=== PATIENT | female | born 1995 | race African-American/Black ===

== ENCOUNTER 2019-08-07 10:01 | Outpatient (CLI) | payer MEDICAID | END 2019-08-07 11:30 | disposition home or self-care (01) | LOC: LC 10:01 | PROVIDERS: ATTEND Obstetrics & Gynecology | PROC: 4A1HXCZ Monitoring of Products of Conception, Cardiac Rate, External Approach (ICD-10-PCS; principal; 2019-08-07) | DX: O24.419 Gestational diabetes mellitus in pregnancy, unspecified control (principal); Z3A.35 35 weeks gestation of pregnancy | CPT/HCPCS: 59025 ==

== ENCOUNTER 2019-09-07 08:10 | Inpatient (IN) | payer MEDICAID ==
[2019-09-07] MEDS ORDERED: OXYTOCIN 10 UNIT/ML VIAL ONE (08:28)
[2019-09-07] MEDS ORDERED: MISOPROSTOL 0.2 MG TABLET ONE (08:28)
[2019-09-07] MEDS ORDERED: OXYTOCIN/NORMAL SALINE 20 UNIT/1,000 ML RTUINJ ONE (08:28)
[2019-09-07] MEDS ORDERED: LIDOCAINE 1% INJ-PF (10 MG/ML) 30 ML SDV ONE (08:28)
--- NOTE | 2019-09-07 08:44 | Admission Physical ---
Datetime Report Generated by CPN: 09/07/2019 08:44 CURRENT ADMISSION Hx Assessment: The History has been Reviewed and is Current Chief Complaint: Uterine Contractions Indication for Induction: Not Applicable Admit Impression : Term, Intrauterine Admit Plan: Admit to Unit; Initiate Labor Protocol ALLERGIES Medication Allergies: No Medication Allergies: No Known Allergies (09/07/2019) Latex: No Latex Allergies OBSTETRICAL HISTORY EDC: 09/06/2019 00:00 : 2 Para: 0 : 1 Livin Gestational Diabetes: Yes Rh Sensitization: No Incompetent Cervix: No PEDRO: No Infertility: No ART Treatment: No Uterine Anomaly: No IUGR: No Hx Previous C/S: No Macrosomia: No Hx Loss/Stillborn: No PIH: No Hx : No Placenta Previa/Abruption: No Depression/PP Depression: No PTL/PROM: No Post Hemorrhage: No Current Procedures: Ultrasound; NST Obstetrical History Comments: G1-Delivered at 19.2 weeks, within 30 minutes of G2-Current SEE RECORDS Alcohol: No Marijuana : No Cocaine: No Other Illicit Drugs: No Cigarettes: Never Smoker. 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 Surgery: No Heart Disease: No Hosp/Surgery: No Autoimmune Disorder: No Anesthetic Complications: No Kidney Disease: No Abnormal Pap Smear: No Neuro/Epilepsy: No Psychiatric Disorders: No Other Medical Diseases: No Hepatitis/Liver Disease: No Significant Family History: No Varicosities/Phlebitis: No Trauma/Violence : No Thyroid Dysfunction: No Medical History Comments: GDM-diet controlled INFECTIOUS HISTORY Gonorrhea: No Genital Herpes: No Chlamydia: No Tuberculosis: No Syphilis: No Hepatitis: No HIV/AIDS Exposure: No Rash or Viral Illness: No HPV: No PHYSICAL EXAM General: Normal HEENT: Normal Neurologic: Normal Thyroid: Normal Heart: Normal Lungs: Normal Breast: Normal Back: Normal Abdomen: Normal Genitourinary Exam: Normal Extremities: Normal DTRs: Normal Pelvic Type: Adequate Physical Exam Comments: G2 P 1 MFM for GDM loss at 20 weeks Marginal cord insertion IUGR, IOL @ 39 weeks, pt declined Choroid plexus cyst GBS neg Vital Signs: Reviewed MEMBRANES Membranes: Intact FETUS A EGA: 40.1 Monitoring: External US Presentation: Vertex Admit Comment: Admitted to LD in active labor @ 40.1, complete, bulging BOW UC's q 2 min, variable decelerations with uc's, Cat 1 strip will arom and anticipate PLANS FOR LABOR AND DELIVERY Labor and Delivery: None Pain Management: None Feeding Preference: Breast Circumcision: N/A INFORMED CONSENT Assignment: Leti Gates MD Signature: with User ID: [email or web address] : with User ID: [email or web address]
[2019-09-07 09:01] LABS: ABSOLUTE BASOPHILS # (AUTO) 0.1 10^3/uL (0.0-0.2); ABSOLUTE LYMPHOCYTES (AUTO) 1.6 10^3/uL (0.5-4.7); ABSOLUTE MONOCYTES (AUTO) 0.4 10^3/uL (0.1-1.4); BASOPHILS % (AUTO) 0.9 % (0-2); EOSINOPHILS % (AUTO) 0.4 % (0-6); HEMATOCRIT 39.6 % (36.0-47.0); HEMOGLOBIN 13.4 g/dL (12.0-15.5); LYMPHOCYTES % (AUTO) 26.7 % (13-45); MEAN CORPUSCULAR HEMOGLOBIN 32.1 pg (27.0-33.4); MEAN CORPUSCULAR HGB CONC 33.8 g/dL (32.0-36.0); MEAN CORPUSCULAR VOLUME 95 fl (80-97); MONOCYTES % (AUTO) 7.1 % (3-13); PLATELET COUNT 145 10^3/uL (150-450); RED BLOOD COUNT 4.17 10^6/uL (3.72-5.28); RED CELL DISTRIBUTION WIDTH 13.4 % (11.5-14.0); SEGMENTED NEUTROPHILS % (AUTO) 64.9 % (42-78); TOTAL CELLS COUNTED % (AUTO) 100 %; WHITE BLOOD COUNT 6.2 10^3/uL (4.0-10.5)
[2019-09-07 09:18] LABS: APPEARANCE,URINE CLEAR; BILIRUBIN,URINE NEGATIVE (NEGATIVE); COLOR,URINE YELLOW; GLUCOSE, URINE NEGATIVE (NEGATIVE); KETONES,URINE NEGATIVE (NEGATIVE); LEUKOCYTE ESTERASE,URINE NEGATIVE (NEGATIVE); NITRITE,URINE NEGATIVE (NEGATIVE); PROTEIN,URINE NEGATIVE (NEGATIVE); UROBILINOGEN,URINE NEGATIVE mg/dL (<2.0)
[2019-09-07] MEDS ORDERED: OXYTOCIN/NORMAL SALINE 20 UNIT/1,000 ML RTUINJ IV PRN (09:26)
[2019-09-07] MEDS ORDERED: DIPH/PERTUSS(ACELL)/TETANUS VAC/PF 0.5 ML SYR (>=10YO) IM PRN (09:26)
[2019-09-07] MEDS ORDERED: GLYCERIN/WITCH HAZEL LEAF 1 EACH MED..WIPE TP PRN (09:26)
[2019-09-07] MEDS ORDERED: ACETAMINOPHEN WITH CODEINE #3 TABLET PO PRN ×2 (09:26)
[2019-09-07] MEDS ORDERED: DIPHENHYDRAMINE HCL 25 MG CAPSULE PO PRN (09:26)
[2019-09-07] MEDS ORDERED: BENZOCAINE/MENTHOL AEROSOL SPRAY 56 ML TOP PRN (09:26)
[2019-09-07] MEDS ORDERED: MEASLES,MUMPS&RUBELLA VACC/PF 0.5 ML VIAL SUBCUT PRN (09:26)
[2019-09-07] MEDS ORDERED: DIBUCAINE 1% OINTMENT 56 GM TP PRN (09:26)
[2019-09-07] MEDS ORDERED: PROMETHAZINE HCL INJ 25 MG/1 ML VIAL IV PRN (09:26)
[2019-09-07] MEDS ORDERED: NA PHOS,M-B/NA PHOS,DI-BA (ADULT) 133 ML ENEMA PR PRN (09:26)
[2019-09-07] MEDS ORDERED: PSEUDOEPHEDRINE HCL 30 MG TABLET PO PRN (09:26)
[2019-09-07] MEDS ORDERED: PROMETHAZINE HCL 25 MG TABLET PO PRN (09:26)
[2019-09-07] MEDS ORDERED: ACETAMINOPHEN 650 MG SUPP.RECT PR PRN (09:26)
[2019-09-07] MEDS ORDERED: MAGNESIUM HYDROXIDE SUSP 30 ML UDCUP PO PRN (09:26)
[2019-09-07] MEDS ORDERED: PROMETHAZINE HCL 25 MG SUPP.RECT PR PRN (09:26)
[2019-09-07 09:35] LABS: URINE AMPHETAMINES SCREEN NEGATIVE; URINE BARBITURATES SCREEN NEGATIVE; URINE BENZODIAZEPINES SCREEN NEGATIVE; URINE COCAINE SCREEN NEGATIVE; URINE MARIJUANA (THC) SCREEN NEGATIVE; URINE METHADONE SCREEN NEGATIVE; URINE PHENCYCLIDINE SCREEN NEGATIVE
--- NOTE | 2019-09-07 09:53 | Delivery Summary ---
Del Sum A-C Datetime Report Generated by CPN: 09/07/2019 09:53 DELIVERY PERSONNEL DELIVERY PERSONNEL: [id number] Delivery Doctor:: Avis Mueller CNM Labor and Delivery Nurse:: Orly Lynn RNbusiness proposal rep Nurse:: Yuridia Mireles RN Nursery Nurse:: Di Guardado RN Veterans Contact Representative/CHEST PAINTING LEADER: Marleen Knott CNA II MATERNAL INFORMATION Delivery Anesthesia: None Medications After Delivery: Pitocin Bolus-Please Comment; Pitocin Drip 20 Units/1000ml NSS Meds After Delivery Comment: Pitocin 20 units in 1 L NS bolusing per order Estimated Blood Loss (ml): 300 Maternal Complications: Precipitous Labor (<3hrs) Provider Comments: viable female for EUGENIA to OA over lacerations, placed on mothers abd, cord clamped and cut after 2 minutes by father of baby, spont delivery of grossly normal placenta, FFFM, uterine massage and Pitocin lacerations repaired with 2-0 chromic without difficulty, cervix intact, avendano placed to assure patency, 100 cc urine obtained Baby and mom remain in recovery in stable condition, plans to breast feed LABOR SUMMARY EDC: 09/06/2019 00:00 No. Babies in Womb: 1 Attempted: No Labor Anesthesia: None LABOR INFORMATION Reason for Induction: Not Applicable Complete Dilatation: 09/07/2019 08:45 Oxytocin: N/A Group B Beta Strep: neg Antibiotics # of Doses: 0 Antibiotics Time of Last Dose: n/a Name of Antibiotic Given: n/a Steroids Given: None Reason Steroids Not Administered: Not Applicable MEMBRANES Membranes Rupture Method: Artificial Rupture of Membranes: 09/07/2019 08:48 Length of Rupture (hr): 0.15 Amniotic Fluid Color: Clear Amniotic Fluid Amount: None Amniotic Fluid Odor: Normal STAGES OF LABOR Stage 2 hr: 0 Stage 2 min: 12 Stage 3 hr: 0 Stage 3 min: 4 VAGINAL DELIVERY Laceration #1: Perineal; Periurethral Laceration Extension #1: First Degree Laceration Repair: Yes Laceration Repair Note: left and right periurethral sutured and perineal lac sutured with no issues Sponge Count Correct: Yes Sharps Count Correct: Yes CSECTION DELIVERY Primary Indication: N/A Secondary Indication: N/A CSection Incidence: N/A Labor: N/A Elective: N/A CSection Incision: N/A BABY A INFORMATION Infant Delivery Date/Time: 09/07/2019 08:57 Method of Delivery: Vaginal Born in Route : No : N/A Forceps: N/A Vacuum Extraction: N/A Shoulder Dystocia : No PRESENTATION/POSITION BABY A Presentation: Cephalic Cephalic Presentation: Vertex Vertex Position: Left Occipital Anterior Breech Presentation: N/A PLACENTA INFORMATION BABY A Placenta Delivery Time : 09/07/2019 09:01 Placenta Method of Delivery: Spontaneous Placenta Status: Delivered SCORES BABY A Heart Rate 1 min: >100 bpm Resp Effort 1 min: Good Cry Reflex Irritability 1 min: Cough or Sneeze or Pulls Away Muscle Tone 1 min: Active Motion Color 1 min: Blue/Pale Resuscitation Effort 1 min: Tactile Stimulation SCORE 1 MIN: 8 Heart Rate 5 min: >100 bpm Resp Effort 5 min: Good Cry Reflex Irritability 5 min: Cough or Sneeze or Pulls Away Muscle Tone 5 min: Active Motion Color 5 min: Body Wise, Extremities Blue Resuscitation Effort 5 min: Tactile Stimulation SCORE 5 MIN: 9 INFANT INFORMATION BABY A Gestational Age at Delivery: 40.1 Gestational Status: Full Term- 39- 40.6 Weeks Outcome : Liveborn Infant Condition : Stable Sex: Female IDENTIFICATION BABY A Infant Verification Date/Time: 09/07/2019 08:57 ID Band Number: [id number] Mother's Name Verified: Yes Infant RN Verifying Infant: C. Geo RN CORD INFORMATION BABY A No. Cord Vessels: 3 Nuchal Cord : N/A Nuchal Cord- Other: compound right hand Cord Blood Taken: Yes-For Storage (Mom's Blood type +) ASSESSMENT BABY A Complications: None Physical Findings at Delivery: Within Normal Limits Respirations: Appears Normal Skin to Skin: Yes Skin to Skin Time (min): 60 Diplomatic Officer/ALS Called : No Care By: Di Guardado, RN BABY B INFORMATION : N/A
[2019-09-07] MEDS: FERROUS SULFATE 325 MG TABLET PO SCH ×2 (15:40→17:26)
[2019-09-07] MEDS: DOCUSATE SODIUM 100 MG CAPSULE PO SCH ×2 (15:40→17:25)
[2019-09-07] MEDS: IBUPROFEN 800 MG TABLET PO SCH ×2 (17:46→21:42)
[2019-09-07] MEDS: FAMOTIDINE 20 MG TABLET PO SCH ×2 (19:32→21:43)
[2019-09-07] MEDS: SENNOSIDES/DOCUSATE 8.6-50 MG 1 EACH TABLET PO SCH (19:32)
[2019-09-07] MEDS: PRENATAL VITAMIN W DHA CAPSULE PO SCH (19:32)
[2019-09-08] MEDS: IBUPROFEN 800 MG TABLET PO SCH ×3 (05:57→21:40)
[2019-09-08] MEDS: PRENATAL VITAMIN W DHA CAPSULE PO SCH (09:55)
[2019-09-08] MEDS: FAMOTIDINE 20 MG TABLET PO SCH ×2 (09:55→21:40)
[2019-09-08] MEDS: DOCUSATE SODIUM 100 MG CAPSULE PO SCH ×2 (09:55→17:29)
[2019-09-08] MEDS: FERROUS SULFATE 325 MG TABLET PO SCH ×2 (09:55→17:29)
[2019-09-08] MEDS: SENNOSIDES/DOCUSATE 8.6-50 MG 1 EACH TABLET PO SCH (09:55)
[2019-09-08 10:09] LABS: HEMATOCRIT 37.2 % (36.0-47.0); HEMOGLOBIN 12.6 g/dL (12.0-15.5); MEAN CORPUSCULAR HEMOGLOBIN 32.5 pg (27.0-33.4); MEAN CORPUSCULAR VOLUME 96 fl (80-97); PLATELET COUNT 133 10^3/uL (150-450); RED BLOOD COUNT 3.89 10^6/uL (3.72-5.28); RED CELL DISTRIBUTION WIDTH 13.4 % (11.5-14.0); WHITE BLOOD COUNT 9.5 10^3/uL (4.0-10.5)
--- NOTE | 2019-09-08 10:22 | PDOC PROGRESS REPORT ---
Subjective-OB Progress Note for:: 09/08/19 - PP Day #1, doing well, no complaints, A+, rubella pending, Physical Exam (OB) Vital Signs: Temp Pulse Resp BP Pulse Ox 97.5 F 82 14 108/75 99 09/08/19 07:26 09/08/19 07:26 09/08/19 07:26 09/08/19 07:26 09/08/19 07:26 Intake & Output 09/07/19 09/08/19 09/09/19 06:59 06:59 06:59 Weight 65.1 kg - General General Appearance: Appears well, Alert In distress: None - PIH/Pre-Eclampsia DTR's: 2 + Clonus: Negative Headache: Absent Epigastric Pain: No Visual Changes: No - Lochia Lochia Amount: Small 10-25 ml Lochia Color: Rubra/Red - Abdomen Description: Soft, Round Fundal Description: Firm, Midline Fundal Height: u/u - u/2 - Respiratory Respiratory Status: No respiratory distress - Abdominal Inspection: Normal Distension: No distension - Genitourinary Genitourinary Note: voiding - Extremities Upper extremity: Normal inspection Lower extremities: Normal inspection - Neurological Cognition: Normal Orientation: AAOx4 - Psychological Associated symptoms: Normal affect, Normal mood - Skin Skin Temperature: Warm Skin Moisture: Dry Objective-Diagnostic Laboratory: 09/08/19 09:51 09/08/19 09:51 WBC 9.5 RBC 3.89 Hgb 12.6 Hct 37.2 MCV 96 MCH 32.5 MCHC 34.0 RDW 13.4 Plt Count 133 L Assessment and Plan(PN) - Assessment and Plan (1) Normal course Is this a current diagnosis for this admission?: Yes (2) Delivery normal Is this a current diagnosis for this admission?: Yes (3) Gestational diabetes mellitus Qualifiers: Gestational diabetes mellitus control: diet-controlled Trimester: third trimester Qualified Code(s): O24.410 - Gestational diabetes mellitus in , diet controlled Is this a current diagnosis for this admission?: Yes - Time Spent with Patient Time with patient: Less than 15 minutes Medications reviewed and adjusted accordingly: Yes - Disposition Anticipated Discharge: Home Within: within 24 hours
[2019-09-09] MEDS: IBUPROFEN 800 MG TABLET PO SCH ×2 (05:57→13:39)
[2019-09-09 08:31] VITALS: BP 110/69
[2019-09-09] MEDS: FAMOTIDINE 20 MG TABLET PO SCH (09:09)
[2019-09-09] MEDS: FERROUS SULFATE 325 MG TABLET PO SCH (09:09)
[2019-09-09] MEDS: DOCUSATE SODIUM 100 MG CAPSULE PO SCH (09:09)
[2019-09-09] MEDS: SENNOSIDES/DOCUSATE 8.6-50 MG 1 EACH TABLET PO SCH (09:09)
[2019-09-09] MEDS: PRENATAL VITAMIN W DHA CAPSULE PO SCH (09:09)
--- NOTE | 2019-09-09 11:51 | PDOC PROGRESS REPORT ---
Subjective-OB Progress Note for:: 09/09/19 Subjective: Ready for discharge. Physical Exam (OB) Vital Signs: Temp Pulse Resp BP Pulse Ox 97.4 F 87 14 110/69 98 09/09/19 08:30 09/09/19 08:30 09/09/19 08:30 09/09/19 08:30 09/09/19 08:30 Intake & Output 09/08/19 09/09/19 09/10/19 06:59 06:59 06:59 Intake Total 400 Balance 400 Weight 65.1 kg - PIH/Pre-Eclampsia DTR's: 1 + Clonus: Negative Headache: Absent Epigastric Pain: No Visual Changes: No - Lochia Lochia Amount: Scant < 10 ml Lochia Color: Rubra/Red - Abdomen Description: Soft, Round Hernia Present: No Bowel Sounds: Normoactive Flatus Presence: Present Stool: Yes Fundal Description: Firm, Midline Fundal Height: u/u - u/2 Objective-Diagnostic Laboratory: 09/08/19 09:51 Assessment and Plan(PN) - Time Spent with Patient Medications reviewed and adjusted accordingly: Yes - Disposition Anticipated Discharge: Home
--- NOTE | 2019-09-09 11:57 | PDOC DISCHARGE SUMMARY ---
Impression - Admit/DC Date/PCP Admission Date/Primary Care Provider: 09/07/19 08:32 HUSSAIN BLUE MD Discharge Date: 09/09/19 - Discharge Diagnosis (1) Delivery normal Is this a current diagnosis for this admission?: Yes (2) Gestational diabetes mellitus Is this a current diagnosis for this admission?: Yes (3) Normal course Is this a current diagnosis for this admission?: Yes - Additional Information Resuscitation Status: Full Code Discharge Diet: Regular Discharge Activity: Activity As Tolerated, Balance Activity w/Rest, Pelvic Rest, Slowly Increase Activity, No tub bath Referrals: HUSSAIN BLUE MD [Primary Care Provider] - Home Medications: Vit,Calc76/Iron/Folic [Prenatabs Rx Tablet] 1 tab PO DAILY 08/07/19 HPI Gestational Age: 40.1 wks Reason(s) for Admission: Onset of Labor Procedures: Ultrasound Intrapartum Procedure(s): Spontaneous Vaginal Delivery Complication(s): Laceration-Perineal, Laceration-Periurethral Laceration-Degree: 1st Results Laboratory Results: WBC 9.5 10^3/uL (4.0-10.5) 09/08/19 09:51 RBC 3.89 10^6/uL (3.72-5.28) 09/08/19 09:51 Hgb 12.6 g/dL (12.0-15.5) 09/08/19 09:51 Hct 37.2 % (36.0-47.0) 09/08/19 09:51 MCV 96 fl (80-97) 09/08/19 09:51 MCH 32.5 pg (27.0-33.4) 09/08/19 09:51 MCHC 34.0 g/dL (32.0-36.0) 09/08/19 09:51 RDW 13.4 % (11.5-14.0) 09/08/19 09:51 Plt Count 133 10^3/uL (150-450) L 09/08/19 09:51 Lymph % (Auto) 26.7 % (13-45) 09/07/19 08:42 Leon % (Auto) 7.1 % (3-13) 09/07/19 08:42 Eos % (Auto) 0.4 % (0-6) 09/07/19 08:42 Baso % (Auto) 0.9 % (0-2) 09/07/19 08:42 Absolute Neuts (auto) 4.0 10^3/uL (1.7-8.2) 09/07/19 08:42 Absolute Lymphs (auto) 1.6 10^3/uL (0.5-4.7) 09/07/19 08:42 Absolute Monos (auto) 0.4 10^3/uL (0.1-1.4) 09/07/19 08:42 Absolute Eos (auto) 0.0 10^3/uL (0.0-0.6) 09/07/19 08:42 Absolute Basos (auto) 0.1 10^3/uL (0.0-0.2) 09/07/19 08:42 Seg Neutrophils % 64.9 % (42-78) 09/07/19 08:42 Urine Color YELLOW 09/07/19 08:20 Urine Appearance CLEAR 09/07/19 08:20 Urine pH 7.0 (5.0-9.0) 09/07/19 08:20 Ur Specific [place] 1.010 09/07/19 08:20 Urine Protein NEGATIVE mg/dL (NEGATIVE) 09/07/19 08:20 Urine Glucose (UA) NEGATIVE mg/dL (NEGATIVE) 09/07/19 08:20 Urine Ketones NEGATIVE mg/dL (NEGATIVE) 09/07/19 08:20 Urine Blood NEGATIVE (NEGATIVE) 09/07/19 08:20 Urine Nitrite NEGATIVE (NEGATIVE) 09/07/19 08:20 Urine Bilirubin NEGATIVE (NEGATIVE) 09/07/19 08:20 Urine Urobilinogen NEGATIVE mg/dL (<2.0) 09/07/19 08:20 Ur Leukocyte Esterase NEGATIVE (NEGATIVE) 09/07/19 08:20 Urine Ascorbic Acid NEGATIVE (NEGATIVE) 09/07/19 08:20 Urine Opiates Screen NEGATIVE 09/07/19 08:20 Urine Methadone Screen NEGATIVE 09/07/19 08:20 Ur Barbiturates Screen NEGATIVE 09/07/19 08:20 Ur Phencyclidine Scrn NEGATIVE 09/07/19 08:20 Ur Amphetamines Screen NEGATIVE 09/07/19 08:20 U Benzodiazepines Scrn NEGATIVE 09/07/19 08:20 Urine Cocaine Screen NEGATIVE 09/07/19 08:20 U Marijuana (THC) Screen NEGATIVE 09/07/19 08:20 RPR NONREACTIVE (NONREACTIVE) 09/07/19 08:42 Blood Type A POSITIVE 09/07/19 08:42 Antibody Screen NEGATIVE 09/07/19 08:42 Plan Goals: Follow up at [facility] in 4 wks or prn.
== END 2019-09-09 14:14 | disposition home or self-care (01) | DRG 807 ==
LOC: LC 08:10 → LR 08:32 → 2S 13:30
PROVIDERS: ADMIT Obstetrics & Gynecology; ATTEND Obstetrics & Gynecology
PROC: 10E0XZZ Delivery of Products of Conception, External Approach (ICD-10-PCS; principal; 2019-09-07)
PROC: 0UQMXZZ Repair Vulva, External Approach (ICD-10-PCS; 2019-09-07)
PROC: 0HQ9XZZ Repair Perineum Skin, External Approach (ICD-10-PCS; 2019-09-07)
DX: O24.420 Gestational diabetes mellitus in childbirth, diet controlled (principal); Z37.0 Single live birth; O32.6XX0 Maternal care for compound presentation, not applicable or unspecified; O76 Abnormality in fetal heart rate and rhythm complicating labor and delivery; O62.3 Precipitate labor; Z3A.40 40 weeks gestation of pregnancy; O70.0 First degree perineal laceration during delivery; O71.82 Other specified trauma to perineum and vulva
CPT/HCPCS: 36415; 80307; 81005; 85025; 85027; 86592; 86850; 86900; 86901; J2590; J3490